=== PATIENT | male | born 1955 ===

== ENCOUNTER 2017-01-08 18:35 | Inpatient (IN) | payer OTHER ==
[2017-01-08 18:39] VITALS: BMI 50.4
[2017-01-08 19:49] LABS: BASO # 0.02 K/mm3 (0.0-2.0); BASO % 0.4 % (0.0-3.0); EOS # 0.1 (0.0-0.7); EOS % 1.8 % (1.5-5.0); GRAN # 2.73 (1.4-6.5); GRAN % 54.2 % (50.0-68.0); HEMATOCRIT 42.9 % (42.0-52.0); LYMPH # 1.8 (1.2-3.4); LYMPH % 36.2 % (22.0-35.0); MEAN CELL VOLUME 89.9 fl (80.0-105.0); MEAN CORPUSCULAR HGB CONC 33.3 g/dl (31.0-37.0); MEAN PLATELET VOLUME 11.5 fl (7.0-11.0); MONO # 0.4 (0.1-0.6); MONO % 7.4 % (1.0-6.0); RED CELL DISTRIBUTION WIDTH 13.1 % (11.5-14.5)
[2017-01-08 19:57] LABS: ALB/GLOB RATIO 1.3 (1.1-1.8); ALKALINE PHOSPHATASE 66 U/L (38-133); ALT/SGPT 35 U/L (7-56); AST/SGOT 30 U/L (15-59); BILIRUBIN,TOTAL 0.5 mg/dL (0.2-1.3); BLOOD UREA NITROGEN 17 mg/dL (7-21); CALCIUM 9.3 mg/dL (8.4-10.5); CARBON DIOXIDE 28 mmol/L (21-33); CHLORIDE 103 mmol/L (95-110); GFR AFRICAN-AMERICAN > 60; GLUCOSE,RANDOM 190 mg/dL (70-110); POTASSIUM 4.3 mmol/L (3.6-5.0); SODIUM 140 mmol/L (132-148); TOTAL PROTEIN 6.8 g/dL (5.8-8.3)
--- NOTE | 2017-01-08 20:27 | ED PDOC ---
Arrival/HPI - General Chief Complaint: Lower Extremity Problem/Injury Time Seen by Provider: 01/08/17 19:09 Historian: Patient - History of Present Illness Narrative History of Present Illness (Text): 01/08/17 20:26 A 61 year old obese male, who has a past medical history of cellulites, DM, HTN , and HLD presents to the emergency department with complains of cellulites on his right calf, which began 1 week ago. The patient reports that he was seen by his primary doctor and was put on antibiotics, but has not seen any improvement , therefore he came to the emergency department. The patient denies any fever, trauma to area, nausea, cough, chest pain, headache, vision changes, hearing changes, back pain, or any other complaints at this time. Time/Duration: 1 week Symptom Course: Unchanged Activities at Onset: Light Context: Home Past Medical History - Provider Review Nursing Documentation Reviewed: Yes - Infectious Disease Hx of Infectious Diseases: None - Cardiac Hx Hypertension: Yes - Endocrine/Metabolic Hx Diabetes Mellitus Type 2: Yes - Hematological/Oncological Hx Blood Transfusions: No Hx Blood Transfusion Reaction: No - Integumentary Hx Psoriasis: Yes - Musculoskeletal/Rheumatological Hx Falls: No - Psychiatric Hx Substance Use: No - Anesthesia Hx Anesthesia Reactions: No Hx Malignant Hyperthermia: No - Suicidal Assessment Feels Threatened In Home Enviroment: No Family/Social History - Physician Review Nursing Documentation Reviewed: Yes Family/Social History: No Known Family HX Smoking Status: Former Smoker Hx Alcohol Use: No Hx Substance Use: No Hx Substance Use Treatment: No Allergies/Home Meds Allergies/Adverse Reactions: Allergies Iodine and Iodide Containing Produc Allergy (Verified 01/10/16 13:02) REDNESS Home Medications: Home Meds Medication Instructions Recorded Confirmed Enalapril Maleate [Vasotec] 20 mg PO DAILY 01/12/16 01/08/17 Metformin HCl [Glucophage] 1,000 mg PO BID 01/12/16 01/08/17 Amoxicillin [Amoxil 500 mg Cap] 500 mg PO BID 01/08/17 01/08/17 Cholecalciferol [Vitamin D 1000 IU] 50,000 units PO QD7 01/08/17 01/08/17 Furosemide [Lasix] 20 mg PO DAILY 01/08/17 01/08/17 Gabapentin [Neurontin] 300 mg PO BID 01/08/17 01/08/17 Amox-Clav 875-125 mg Tablet 500 PO BID 01/09/17 Review of Systems - Physician Review All systems were reviewed & negative as marked: Yes - Review of Systems Constitutional: absent: Fevers Eyes: absent: Vision Changes ENT: absent: Hearing Changes Respiratory: absent: Cough Cardiovascular: absent: Chest Pain Gastrointestinal: absent: Nausea Musculoskeletal: absent: Back Pain Skin: Cellulitis (Right calf) Neurological: absent: Headache Physical Exam Vital Signs Reviewed: Yes Vital Signs Temp Pulse Resp BP Pulse Ox 01/08/17 22:12 82 18 128/72 99 01/08/17 20:36 84 18 132/74 100 01/08/17 18:36 98 F 95 H 18 128/82 97 Temperature: Afebrile Blood Pressure: Normal Pulse: Tachycardic Respiratory Rate: Normal Appearance: Positive for: Well-Appearing, Non-Toxic, Comfortable Pain Distress: None Mental Status: Positive for: Alert and Oriented X 3 - Systems Exam Head: Present: Atraumatic, Normocephalic Pupils: Present: PERRL Conjunctiva: Present: Normal Mouth: Present: Moist Mucous Membranes Neck: Present: Normal Range of Motion Respiratory/Chest: Present: Clear to Auscultation, Good Air Exchange. No: Respiratory Distress, Accessory Muscle Use Cardiovascular: Present: Regular Rate and Rhythm, Normal S1, S2. No: Murmurs Abdomen: Present: Normal Bowel Sounds. No: Tenderness, Distention, Peritoneal Signs Upper Extremity: Present: Normal Inspection. No: Cyanosis, Edema Lower Extremity: Present: Other (Lesion on right calf with erythmea associated with cellulites) Neurological: Present: GCS=15, Speech Normal Skin: Present: Warm, Dry, Normal Color. No: Rashes Psychiatric: Present: Alert, Oriented x 3, Normal Insight, Normal Concentration Medical Decision Making ED Course and Treatment: 01/08/17 20:31 Impression: A 61 year old male with cellulites to the right calf. Differential Diagnosis included but are not limited to: cellulitis Plan: -- Labs -- Reassess and disposition Prior Visits: Notes and results from previous visits were reviewed. The patient was last seen in the emergency department on 01/10/16 for flu-like symptoms. The patient was admitted to the hospital. Progress Notes: 01/08/17 21:[address] Patel, who is aware and agrees with plan. Accepts pt in to her service. Pt will go to Telemetry observation for cellulitis. Pt is no acute distress. Discussed results and hospital observation plan with pt , who is aware and verbalizes understanding. - Lab Interpretations Lab Results: 01/08/17 19:35 01/08/17 19:35 Lab Results 01/08/17 19:35: Sodium 140, Potassium 4.3, Chloride 103, Carbon Dioxide 28, Anion Gap 13, BUN 17, Creatinine 0.9, Est GFR ( Amer) > 60, Est GFR (Non- Af Amer) > 60, Random Glucose 190 H, Calcium 9.3, Total Bilirubin 0.5, AST 30, ALT 35, Alkaline Phosphatase 66, Total Protein 6.8, Albumin 3.8, Globulin 3.0, Albumin/Globulin Ratio 1.3 01/08/17 19:35: WBC 5.0, RBC 4.77, Hgb 14.3, Hct 42.9, MCV 89.9, MCH 30.0, MCHC 33.3, RDW 13.1, Plt Count 162, MPV 11.5 H, Gran % 54.2, Lymph % (Auto) 36.2 H, [place] % (Auto) 7.4 H, Eos % (Auto) 1.8, Baso % (Auto) 0.4, Gran # 2.73, Lymph # 1.8, [place] # 0.4, Eos # 0.1, Baso # 0.02 I have reviewed the lab results: Yes - Medication Orders Current Medication Orders: Acetaminophen (Tylenol 325mg Tab) 650 mg PO Q4H PRN PRN Reason: Pain, Mild (1-3) Last Admin: 01/09/17 01:26 Dose: 650 mg Ergocalciferol (Drisdol 50,000 Intl Units Cap) 1 cap PO Q7D JAG Furosemide (Lasix) 20 mg PO DAILY JAG Gabapentin (Neurontin) 300 mg PO BID JAG PRN Reason: Protocol Ceftaroline Fosamil 600 mg/ (Sodium Chloride) 100 mls @ 100 mls/hr IVPB Q12 JAG PRN Reason: Protocol Stop: 01/18/17 22:01 Last Admin: 01/09/17 21:40 Dose: 100 mls/hr Insulin Human Regular (Humulin R Low) 0 units SC ACHS JAG PRN Reason: Protocol Last Admin: 01/09/17 21:41 Dose: Not Given Non-Admin Reason: Blood Sugar Parameter Lisinopril (Zestril) 20 mg PO DAILY JAG Metformin HCl (Glucophage) 1,000 mg PO BID JAG Discontinued Medications Vancomycin HCl (Vancomycin 1gm) 1 gm in 250 mls @ 167 mls/hr IVPB STAT STA PRN Reason: Protocol Stop: 01/08/17 22:29 Last Admin: 01/08/17 21:55 Dose: 167 mls/hr Piperacillin Sod/Tazobactam Sod (Zosyn 3.375 In Ns 100ml) 100 mls @ 200 mls/hr IVPB STAT STA PRN Reason: Protocol Stop: 01/08/17 21:30 Last Admin: 01/08/17 21:54 Dose: 200 mls/hr Lisinopril (Zestril) 20 mg PO DAILY JAG Pneumococcal Polyvalent Vaccine (Pneumovax 23 Vaccine) 0.5 ml IM .ONCE ONE Stop: 01/09/17 02:03 - Scribe Statement The provider has reviewed the documentation as recorded by the Jf Cardoso Provider Scribe Attestation: All medical record entries made by the Scribherlinda were at my direction and personally dictated by me. I have reviewed the chart and agree that the record accurately reflects my personal performance of the history, physical exam, medical decision making, and the department course for this patient. I have also personally directed, reviewed, and agree with the discharge instructions and disposition. Disposition/Present on Arrival - Present on Arrival Any Indicators Present on Arrival: No History of DVT/PE: No History of Uncontrolled Diabetes: Yes Urinary Catheter: No History of Decub. Ulcer: No History Surgical Site Infection Following: None - Disposition Have Diagnosis and Disposition been Completed?: Yes Diagnosis: Cellulitis of right leg Disposition: HOSPITALIZED Disposition Time: 21:30 Condition: GOOD
[2017-01-08] MEDS ORDERED: Vancomycin 1gm in NS 250ml 1 GM/250 ML BAG IVPB STA (21:00)
[2017-01-08] MEDS ORDERED: Piperacillin/Tazobact 3.375 gm 100 ML IVPB STA (21:01)
[2017-01-09] MEDS ORDERED: Pneumococcal 23-Valent Vaccine IM ONE (02:02)
[2017-01-09] MEDS: Insulin Reg-LOW-Coverage SC SCH ×4 (07:50→21:41)
--- NOTE | 2017-01-09 15:33 | US ---
HISTORY: Leg pain and swelling. Evaluate for DVT PHYSICIAN(S): Aram Garcia MD. TECHNIQUE: Duplex sonography and color-flow Doppler with graded compression were used to evaluate the deep venous systems of both lower extremities. The exam is limited by body habitus and edema FINDINGS: The visualized deep venous systems of both lower extremities are sonographically normal and compressible. Normal wave forms and augmentation are seen. There is no sonographic evidence for deep venous thrombosis in the visualized segments of both lower extremities. IMPRESSION: No sonographic evidence for deep venous thrombosis in the visualized segments of both lower extremities. Limited study
[2017-01-09] MEDS: Ceftaroline 600 MG in Sodium Chloride 0.9% 100 ML IVPB SCH (21:40)
--- NOTE | 2017-01-10 01:04 | CON ---
DATE: 01/09/2017 The patient is in 569, bed 2. The patient is seen earlier today. CHIEF COMPLAINT: Right leg infection x several days. HISTORY OF PRESENT ILLNESS: This is a 61-year-old male with morbid obesity, known to me previous admission last year with patient with a BMI of 49. Patient also has diabetes mellitus, hypertension, and hyperlipidemia, who states that he has had the right leg infection times several days. He denied any fevers or any chills and he had also history of ESBL E. coli prostatitis with an elevated PSA and last year was treated with extended period for prostatitis. Now, the patient is admitted with right leg infection. REVIEW OF SYSTEMS: Reveals the patient has low-grade fevers and no chills, no nausea and *------* a week ago. He denies any cough, shortness of breath or chest pain. No abdominal pain, diarrhea, or constipation. No bright red blood per rectum. No melena. PAST MEDICAL HISTORY: Significant for morbid obesity with BMI of 49, diabetes mellitus, hypertension, hyperlipidemia, and ESBL E. coli prostatitis. PAST SURGICAL HISTORY: Significant for patient did have a colonoscopy. ALLERGIES: THE PATIENT IS ALLERGIC TO IODINE AND IODINE CONTAINING PRODUCTS. MEDICATIONS AT HOME: Include the patient to be on metformin, vitamins, Lasix, enalapril, and Neurontin. PHYSICAL EXAMINATION: VITAL SIGNS: The patient has a temperature of 98; heart rate of 64, it was up to 95 in the emergency room yesterday, blood pressure was 101/40 and respiratory rate of 20. HEENT: Unremarkable. NECK: Supple. LUNGS: Decreased breath sounds. HEART: Normal S1 and S2. ABDOMEN: Soft and nontender. No rebound and no guarding. No masses. EXTREMITIES: Examination of the leg reveals the right calf has erythema, essential necrotic area erythema around it. No purulent discharge. LABORATORY DATA: Reveals white count of 5, hemoglobin of 14, platelets of 162. Chemistry reveals a BUN of 17, creatinine of 0.9, glucose is 174. The patient had an HIV test negative. Hepatitis profile was negative in the past. ASSESSMENT AND PLAN: A 61-year-old male with morbid obesity, body mass index of 49 with diabetes mellitus, hypertension, hyperlipidemia, history of extended-spectrum beta lactamase Escherichia coli prostatitis, presenting now with a right leg cellulitis and concerned about methicillin-resistant Staphylococcus aureus. The patient did have some renal insufficiency in the past. We will treat the patient with Teflaro. Concerned about Doppler. We will order venous Doppler and arterial Doppler regarding his blood supply, although the pulses are intact and we will make further recommendations. Jani Magana MD cc:
[2017-01-10] MEDS: Insulin Reg-LOW-Coverage SC SCH ×4 (08:00→22:31)
[2017-01-10] MEDS: Ergocalciferol 50,000 Intl Units Cap PO SCH (10:34)
[2017-01-10] MEDS: Ceftaroline 600 MG in Sodium Chloride 0.9% 100 ML IVPB SCH ×2 (10:35→22:31)
--- NOTE | 2017-01-10 14:21 | US ---
PROCEDURE: Lower extremity GEETA exam HISTORY: Peripheral vascular disease with pain and ulceration. Previous smoker. Diabetes. PHYSICIAN(S): Aram Garcia MD. FINDINGS: The resting GEETA's are abnormally elevated: Right, 1.35 and left, 1.37 The brachial systolic pressures are symmetric. The low thigh pressures are noncompressible. The low thigh PVR waveforms are normal and symmetric. The calf PVR waveforms augment normally. No significant gradients are noted across the thighs. The ankle and metatarsal waveforms are relatively normal and symmetric. No significant pressure gradients are noted across the lower legs. IMPRESSION: 1. Relatively normal GEETA and PVR examination at rest.
--- NOTE | 2017-01-11 01:20 | HP ---
The patient was seen and examined at the bedside on 01/09/2017. CHIEF COMPLAINT: Pain, swelling, redness of the leg. HISTORY OF PRESENT ILLNESS: Mr. Josemanuel Wei is 61-year-old, my private patient, with past medical history of cellulitis of the legs, malignant hypertension, hypercholesterolemia, came to my office with the swelling of the right calf. Actually, there was a black lesion surrounded by a red lesion and the patient has history of severe peripheral vascular disease. For his grandmother, we had to do amputation of the foot and for mother we had to do bypass due to severe peripheral vascular disease. I thank the patient to be in our hospital. He is admitted for IV antibiotics. ID consult called with Dr. Magana, a length of time discussion done with Dr. Magana. Otherwise, no fever, no chills. No nausea, vomiting or diarrhea. No headache or dizziness. PAST MEDICAL HISTORY: Hypertension, diabetes mellitus type 2; non-insulin requiring, not controlled, obesity, and psoriasis. FAMILY HISTORY: Severe peripheral vascular disease and diabetes mellitus from mother side. HABITS: Former smoker, now quit. No alcohol. No drugs. ALLERGIES: THE PATIENT IS ALLERGIC WITH IODINE. HOME MEDICATIONS: Vasotec, Glucophage, did a course of Augmentin as outpatient, but failed, vitamin D, Lasix, and Neurontin. REVIEW OF SYSTEMS: The patient seen and examined on the bedside on 01/09/2017. His was sitting on the bedside also. Still having redness and warmth on the right calf, but no fever. No chills. No nausea, vomiting or diarrhea. No hematuria or hematochezia. No shortness of breath. No headache. No dizziness. PHYSICAL EXAMINATION VITAL SIGNS: Temperature 98.4, pulse 57, blood pressure 103/59, respiratory rate 20. HEENT: Head is normocephalic and atraumatic. Eyes, PERRLA. Extraocular muscles intact. Conjunctiva clear. Nose patent. Mucous membrane moist. NECK: Supple. No carotid bruit or thyromegaly. CHEST: Bilaterally symmetrical. HEART: S1 and S2 positive. LUNG: Clear to auscultation. ABDOMEN: Soft. Bowel sounds positive. No organomegaly. EXTREMITIES: Upper extremity: No edema. No cyanosis. Lower extremity: Right leg back of the calf is red and black, warm, and tender. NEUROLOGIC: The patient is awake and alert. Moving all 4 extremities. No focal deficit. LABORATORY DATA: White blood cells 5.0, hemoglobin 14.3, hematocrit 42.9, platelets 152. Glucose 158, 215, 242, 131, 174. Sodium 140, potassium 4.3, BUN 17, creatinine 0.9, glucose 174. AST 30 and ALT 35. ASSESSMENT AND PLAN: Mr. Josemanuel Wei a 61-year-old male with history of significant morbid obesity, body mass index of 49, uncontrolled diabetes mellitus type 2; non-insulin requiring, hypertension, hypercholesterolemia, extended spectrum beta lactamase Escherichia coli prostatitis last admission, now came with the right leg cellulitis, concerned about methicillin-resistant Staphylococcus aureus, history of renal insufficiency in the past, now ordered Teflaro. Doppler of the leg ordered. Gastrointestinal and deep venous thrombosis prophylaxis. Blood glucose is not appreciated. We will follow up. Ivonne Patel MD
--- NOTE | 2017-01-11 06:26 | PN ---
DATE: 01/10/2017 SUBJECTIVE: This is a 61-year-old male seen by me on 01/10/2017. No nausea, vomiting or diarrhea. No hematuria or hematochezia. No headache. No dizziness. No chest pain. No palpitation. Still having pain in the calf of the leg, is warm, black and red area. PHYSICAL EXAMINATION: VITAL SIGNS: Temperature 98.3, pulse 85, blood pressure 134/70 and respiratory rate 20. HEENT: Head is normocephalic and atraumatic. Eyes: PERRLA. Extraocular muscles are intact. Conjunctivae clear. Nose is patent. Mucous membrane moist. NECK: Supple. No carotid bruits. No JVD or thyromegaly. CHEST: Bilaterally symmetrical. HEART: S1 and S2 positive. LUNGS: Clear to auscultation. ABDOMEN: Soft. Bowel sounds positive. No organomegaly. EXTREMITIES: No edema. No cyanosis. NEUROLOGICAL: The patient is awake and alert. Moving all four extremities. No focal deficit. MEDICATIONS: Carafate, Vitamin D, Glucophage, insulin, Lasix, Neurontin, Tylenol and lisinopril. LABORATORY DATA: White blood cell is 5.0, hemoglobin 14.3, hematocrit 42.9 and platelets 152. Glucose 118, 146 and 198. ASSESSMENT AND PLAN: Mr. Eriberto Abernathy is 61 years old male with history of diabetes mellitus, not controlled; hypertension; hypercholesterolemia, history of cellulitis of the leg in the past, now came with cellulitis of the leg again. Area is black and red . I would feel outpatient treatment with amoxicillin. History of hypertension. ID consult by Dr. Magana to see that patient started on antibiotics. Gastrointestinal and deep venous thrombosis prophylaxis. Repeat labs. We will follow you. Ivonne Patel MD MTDD
[2017-01-11] MEDS: Insulin Reg-LOW-Coverage SC SCH ×4 (08:30→22:00)
[2017-01-11] MEDS: Ceftaroline 600 MG in Sodium Chloride 0.9% 100 ML IVPB SCH ×2 (10:01→22:40)
--- NOTE | 2017-01-11 14:01 | CP.PCM.PN ---
Subjective - Date & Time of Evaluation Date of Evaluation: 01/11/17 Time of Evaluation: 11:05 - Subjective Subjective: Still with pain at the back of the right leg, no fevers overnight. Objective - Vital Signs/Intake and Output Vital Signs (last 24 hours): Temp Pulse Resp BP Pulse Ox 98 F 67 22 127/71 98 01/11/17 07:53 01/11/17 07:53 01/11/17 07:53 01/11/17 07:53 01/11/17 07:53 Intake and Output: 01/11/17 01/11/17 06:59 18:59 Intake Total 720 Balance 720 - Medications Medications: Current Medications Acetaminophen (Tylenol 325mg Tab) 650 mg PO Q4H PRN PRN Reason: Pain, Mild (1-3) Last Admin: 01/09/17 01:26 Dose: 650 mg Ergocalciferol (Drisdol 50,000 Intl Units Cap) 1 cap PO Q7D [facility] Last Admin: 01/10/17 10:34 Dose: 1 cap Furosemide (Lasix) 20 mg PO DAILY [facility] Last Admin: 01/10/17 10:34 Dose: 20 mg Gabapentin (Neurontin) 300 mg PO BID JAG PRN Reason: Protocol Last Admin: 01/10/17 17:26 Dose: 300 mg Ceftaroline Fosamil 600 mg/ (Sodium Chloride) 100 mls @ 100 mls/hr IVPB Q12 JAG PRN Reason: Protocol Stop: 01/18/17 22:01 Last Admin: 01/10/17 22:31 Dose: 100 mls/hr Insulin Human Regular (Humulin R Low) 0 units SC ACHS JAG PRN Reason: Protocol Last Admin: 01/10/17 22:31 Dose: Not Given Lisinopril (Zestril) 20 mg PO DAILY [facility] Last Admin: 01/10/17 10:36 Dose: 20 mg Metformin HCl (Glucophage) 1,000 mg PO BID [facility] Last Admin: 01/10/17 17:26 Dose: 1,000 mg - Constitutional Appears: Non-toxic, No Acute Distress - Head Exam Head Exam: NORMAL INSPECTION - ENT Exam ENT Exam: Mucous Membranes Moist - Neck Exam Neck Exam: absent: Meningismus - Respiratory Exam Respiratory Exam: Decreased Breath Sounds - Cardiovascular Exam Cardiovascular Exam: +S1, +S2 - GI/Abdominal Exam GI & Abdominal Exam: Soft. absent: Tenderness - Extremities Exam Additional comments: posterior right leg with dry area on the back with necrotic center Assessment and Plan - Assessment and Plan (Free Text) Plan: Assessment right leg skin and skin structure infection, need to rule out deeper infection history of extended-spectrum beta-lactamase Escherichia coli sepsis with prostatitis morbid obesity with BMI of 50 diabetes mellitus hypertension dyslipidemia Plan continue Teflaro (day 3); will order MRI of the right leg to see if the infection is deeper or if there is any collection would suggest podiatry evaluation will monitor clinically
[2017-01-12] MEDS: Insulin Reg-LOW-Coverage SC SCH ×4 (05:15→22:35)
--- NOTE | 2017-01-12 10:29 | MRI ---
PROCEDURE: MRI of the right lower extremity without contrast HISTORY: r/o abscess COMPARISON: TECHNIQUE: MRI of the right lower extremity was performed from the proximal to distal tibia. The patient refused contrast administration. . FINDINGS: There is no evidence of abscess. There is minimal subcutaneous edema. There is no significant muscular edema. There is no bone marrow edema to suggest osteomyelitis. IMPRESSION: Negative study
--- NOTE | 2017-01-12 10:31 | PN ---
DATE: 01/11/2017 SUBJECTIVE: The patient was seen and examined. He is looking comfortable. He is still having pain in the right leg especially on the backside, it is a red and black area tender. No nausea, vomiting, or diarrhea. No hematuria or hematochezia. No headache or dizziness. PHYSICAL EXAMINATION: VITAL SIGNS: Temperature of 98, pulse of 67, respiratory rate of 22, blood pressure of 127/71 and pulse oxymetry 98%. HEENT: Head is normocephalic and atraumatic. Eyes; PERRLA. Extraocular muscles are intact. Conjunctivae are clear. Nose is patent. Mucous membrane moist. NECK: Supple. No carotid bruits. No JVD or thyromegaly. CHEST: Bilaterally symmetrical. HEART: S1 and S2 positive. LUNGS: Clear to auscultation. ABDOMEN: Soft. Bowel sounds positive. No organomegaly. EXTREMITIES: Right leg back of the calf, red and black tender. NEUROLOGIC: The patient is awake and alert. Follow simple commands. Moving all four extremities. MEDICATIONS: Vitamin D, Lasix, Neurontin,ceftaroline, insulin, Zestril, and Glucophage. LABORATORY DATA: Reviewed by me. ASSESSMENT AND PLAN: Mr. Josemanuel Wei is a 61 years old my private patient with history of hypertension, diabetes mellitus, hypercholesterolemia, obesity, obstructive sleep apnea syndrome, noncompliant, came with right leg skin structures infection. According to Infectious Diseases need to rule out deep infection history of extended spectrum beta lactamase Escherichia coli, sepsis with prostatitis, morbid obesity with body mass index of 50. We will continue Teflaro day number 3. We will order MRI of the right leg to see if the infection is deep, also there is any collection. ID on that case appreciated, cardiology and podiatry consult. We will follow up. Ivonne Patel MD
[2017-01-12] MEDS: Ceftaroline 600 MG in Sodium Chloride 0.9% 100 ML IVPB SCH ×2 (11:36→22:31)
--- NOTE | 2017-01-12 14:15 | CP.PCM.CON ---
<Christopher Sanchez - Last Filed: 01/12/17 14:11> History of Present Illness - History of Present Illness History of Present Illness: A 61 year old obese male patient with PMHx of cellulites, DM, HTN, and HLD was seen at bedside this afternoon with attending Dr. Chávez concerning an open lesion to right calf. Patient states that he first noticed the wound 1 week ago , but does not remember any trauma to the area. Patient states that he tried antibiotic medications from the primary doctor but did not see any improvements. He denies of any trauma, bugbite or recent travel. Patient complains of pain on palpation to the area of open wound. Patient denies of any N/V/F/C or SOB today Past Patient History - Infectious Disease Hx of Infectious Diseases: None - Past Social History Smoking Status: Former Smoker - CARDIAC Hx Hypertension: Yes - PULMONARY Hx Pneumonia: Yes - ENDOCRINE/METABOLIC Hx Diabetes Mellitus Type 2: Yes - HEMATOLOGICAL/ONCOLOGICAL Hx Blood Transfusions: No Hx Blood Transfusion Reaction: No - INTEGUMENTARY Hx Psoriasis: Yes - MUSCULOSKELETAL/RHEUMATOLOGICAL Hx Falls: No - PSYCHIATRIC Hx Substance Use: No - SURGICAL HISTORY Hx Surgeries: No - ANESTHESIA Hx Anesthesia Reactions: No Hx Malignant Hyperthermia: No Meds Allergies/Adverse Reactions: Allergies Allergy/AdvReac Type Severity Reaction Status Date / Time Iodine and Iodide Containing Allergy REDNESS Verified 01/10/16 13:02 Produc - Medications Medications: Current Medications Acetaminophen (Tylenol 325mg Tab) 650 mg PO Q4H PRN PRN Reason: Pain, Mild (1-3) Last Admin: 01/09/17 01:26 Dose: 650 mg Ergocalciferol (Drisdol 50,000 Intl Units Cap) 1 cap PO Q7D [facility] Last Admin: 01/10/17 10:34 Dose: 1 cap Furosemide (Lasix) 20 mg PO DAILY [facility] Last Admin: 01/12/17 11:35 Dose: 20 mg Gabapentin (Neurontin) 300 mg PO BID [facility] PRN Reason: Protocol Last Admin: 01/12/17 11:33 Dose: 300 mg Ceftaroline Fosamil 600 mg/ (Sodium Chloride) 100 mls @ 100 mls/hr IVPB Q12 [facility] PRN Reason: Protocol Stop: 01/18/17 22:01 Last Admin: 01/12/17 11:36 Dose: 100 mls/hr Insulin Human Regular (Humulin R Low) 0 units SC ACHS [facility] PRN Reason: Protocol Last Admin: 01/12/17 12:14 Dose: 3 units Lisinopril (Zestril) 20 mg PO DAILY [facility] Last Admin: 01/12/17 11:35 Dose: 20 mg Metformin HCl (Glucophage) 1,000 mg PO BID [facility] Last Admin: 01/12/17 11:35 Dose: 1,000 mg Physical Exam - Constitutional Appears: Well, Non-toxic, No Acute Distress - Head Exam Head Exam: ATRAUMATIC - Extremities Exam Additional comments: Right lower extremity exam DERM: Open wound noted to posterior aspect of Right calf measuring 1cm x 1cm x 0.1cm with scab over the ulceration. No drainage is noted, No purulent discharge noted. No probe to bone, no tracking is noted, No mal-odor noted. Erythema is noted around the wound with >2cm margins VASC: Palpable DP and PT noted bilaterally 1/4, WELT DRAWER less than 3 seconds to all digits noted ORTHO: Pain on palpation to the area of ulceration. Decreased ROM to joints distal to right knee secondary to guarding NEURO: Gross sensation intact - Neurological Exam Neurological exam: Alert, Oriented x3 - Psychiatric Exam Psychiatric exam: Normal Affect, Normal Mood - Skin Skin Exam: Normal Color, Warm Results - Vital Signs Recent Vital Signs: Last Vital Signs Temp 98.3 F 01/12/17 08:00 Pulse 90 01/12/17 11:35 Resp 20 01/12/17 08:00 BP 120/79 01/12/17 11:35 Pulse Ox 95 01/12/17 08:00 - Labs Result Diagrams: 01/08/17 19:35 01/08/17 19:35 Labs: Laboratory Results - last 24 hr 01/11/17 01/11/17 01/12/17 16:08 22:31 06:59 POC Glucose (mg/dL) 139 H 123 H 140 H 01/12/17 12:08 POC Glucose (mg/dL) 277 H Assessment & Plan - Assessment and Plan (Free Text) Assessment: 61 yo male patient with venous stasis ulceration to posterior aspect of right leg Plan: Patient was seen, evaluated and treated with all questions and concerns addressed labs and vitals reviewed Rounded with attending Dr. Chávez Applied Hydrocolloid padding; plans for wound culture tomorrow Continue with IV abx as per ID Podiatry will continue to follow in-house <Ida Chávez - Last Filed: 01/23/17 19:32> Results - Vital Signs Recent Vital Signs: Last Vital Signs Temp 98 F 01/17/17 08:50 Pulse 59 L 01/17/17 08:50 Resp 20 01/17/17 08:50 BP 118/73 01/17/17 09:33 Pulse Ox 94 L 01/17/17 08:50 - Labs Result Diagrams: 01/15/17 06:40 01/15/17 06:40 Attending/Attestation - Attestation I have personally seen and examined this patient.: Yes I have fully participated in the care of the patient.: Yes I have reviewed all pertinent clinical information: Yes
--- NOTE | 2017-01-13 01:29 | PN ---
DATE: SUBJECTIVE: The patient is a 61 years old male. The patient was seen and examined on the bedside , looking comfortable. No nausea, vomiting, diarrhea. No hematuria or hematochezia. No headache. No dizziness. No chest pain. No palpitations. The patient has open wound in the leg. PHYSICAL EXAMINATION VITAL SIGNS: Temperature 98.6, pulse 80, blood pressure 140/80, respiratory rate 18. HEENT: Head normocephalic and atraumatic. Eyes PERRLA. Extraocular muscles intact. Conjunctivae clear. Nose patent. Mucous membranes moist. NECK: Supple. No carotid bruits. No JVD or thyromegaly. CHEST: Bilaterally symmetrical. HEART: S1 and S2 positive. LUNGS: Clear to auscultation. ABDOMEN: Soft. Bowel sounds positive. No organomegaly. EXTREMITIES: No edema, no cyanosis. NEUROLOGICAL: The patient is awake and alert. Moving all 4 extremities. No focal deficit. MEDICATIONS: Tylenol, vitamin D, Lasix, Neurontin, sertraline, insulin, Zestril, and Glucophage, LABORATORY DATA: We do not have recent labs today, but I reviewed old labs. ASSESSMENT AND PLAN: Mr. Eriberto Abernathy is a 61-year-old male with uncontrolled diabetes mellitus, had venous stasis ulceration on the posterior aspect of the right leg, nonhealing wound, hypercholesterolemia, hypertension, and obesity. The patient was seen and examined by the Podiatry Dr. Chávez, applied hydrocolloid padding. Plans for wound consult tomorrow. Continue IV antibiotics as per infectious disease. The patient went for MRI of the lower extremity which is negative for subcutaneous edema. No evidence of abscess. We will make discharge planning. Gastrointestinal and deep venous thrombosis prophylaxis. Repeat labs. We will follow. Ivonne Patel MD
[2017-01-13] MEDS: Insulin Reg-LOW-Coverage SC SCH ×4 (08:26→22:11)
[2017-01-13] MEDS ORDERED: Unna Boot TOP ONE (10:06)
--- NOTE | 2017-01-13 10:06 | CP.PCM.PN ---
<Christopher Sanchez - Last Filed: 01/13/17 10:02> Subjective - Date & Time of Evaluation Date of Evaluation: 01/13/17 Time of Evaluation: 10:02 - Subjective Subjective: A 61 year old obese male patient was seen at bedside this afternoon with attending Dr. Chávez concerning an open lesion to right calf. Dressing to right lower extremity appears cdi. Patient resting comfortably and denies of acute distress. Patient denies of any N/V/F/C or SOB today Objective - Vital Signs/Intake and Output Vital Signs (last 24 hours): Temp Pulse Resp BP Pulse Ox 97.9 F 51 L 20 92/51 L 93 L 01/13/17 07:00 01/13/17 07:00 01/13/17 07:00 01/13/17 07:00 01/13/17 07:00 Intake and Output: 01/13/17 01/13/17 06:59 18:59 Intake Total 1020 Balance 1020 - Medications Medications: Current Medications Acetaminophen (Tylenol 325mg Tab) 650 mg PO Q4H PRN PRN Reason: Pain, Mild (1-3) Last Admin: 01/09/17 01:26 Dose: 650 mg Ergocalciferol (Drisdol 50,000 Intl Units Cap) 1 cap PO Q7D [facility] Last Admin: 01/10/17 10:34 Dose: 1 cap Furosemide (Lasix) 20 mg PO DAILY [facility] Last Admin: 01/12/17 11:35 Dose: 20 mg Gabapentin (Neurontin) 300 mg PO BID [facility] PRN Reason: Protocol Last Admin: 01/12/17 19:10 Dose: 300 mg Ceftaroline Fosamil 600 mg/ (Sodium Chloride) 100 mls @ 100 mls/hr IVPB Q12 [facility] PRN Reason: Protocol Stop: 01/18/17 22:01 Last Admin: 01/12/17 22:31 Dose: 100 mls/hr Insulin Human Regular (Humulin R Low) 0 units SC ACHS [facility] PRN Reason: Protocol Last Admin: 01/13/17 08:26 Dose: Not Given Lisinopril (Zestril) 20 mg PO DAILY [facility] Last Admin: 01/12/17 11:35 Dose: 20 mg Metformin HCl (Glucophage) 1,000 mg PO BID [facility] Last Admin: 01/12/17 19:10 Dose: 1,000 mg - Constitutional Appears: Well, Non-toxic, No Acute Distress - Extremities Exam Additional comments: Right lower extremity exam DERM: Open wound noted to posterior aspect of Right calf measuring 1cm x 1cm x 0.1cm with scab over the ulceration. Mild drainage is noted, No purulent discharge noted. No probe to bone, no tracking is noted, No mal-odor noted. Erythema is noted around the wound with <2cm margins VASC: Palpable DP and PT noted bilaterally 1/4, TOLL TEST DESK WORKER less than 3 seconds to all digits noted ORTHO: Pain on palpation to the area of ulceration. Decreased ROM to joints distal to right knee secondary to guarding NEURO: Gross sensation intact - Neurological Exam Neurological Exam: Alert, Awake, Oriented x3 - Psychiatric Exam Psychiatric exam: Normal Affect, Normal Mood - Skin Skin Exam: Normal Color, Warm Assessment and Plan - Assessment and Plan (Free Text) Assessment: 61 yo male patient with venous stasis ulceration to posterior aspect of right leg Plan: Patient was seen, evaluated and treated with all questions and concerns addressed labs and vitals reviewed Rounded with attending Dr. Chávez Wound culture was taken from the ulcer to right calf Applied Hydrocolloid padding; plans to debride ulcer tomorrow. Unna boot ordered to be applied upon patient discharge. Apply Santyl as long as patient remains in-house Continue with IV abx as per ID Podiatry will continue to follow in-house <Ida Chávez - Last Filed: 01/23/17 19:35> Objective - Vital Signs/Intake and Output Vital Signs (last 24 hours): Temp Pulse Resp BP Pulse Ox 98 F 59 L 20 118/73 94 L 01/17/17 08:50 01/17/17 08:50 01/17/17 08:50 01/17/17 09:33 01/17/17 08:50 - Labs Labs: 01/15/17 06:40 01/15/17 06:40 Attending/Attestation - Attestation I have personally seen and examined this patient.: Yes I have fully participated in the care of the patient.: Yes I have reviewed all pertinent clinical information, including history, physical exam and plan: Yes
[2017-01-13] MEDS: Collagenase 250 Units/gm Ointment(30 gm) TOP SCH (11:25)
[2017-01-13] MEDS: Ceftaroline 600 MG in Sodium Chloride 0.9% 100 ML IVPB SCH ×2 (11:25→22:12)
--- NOTE | 2017-01-13 11:42 | CP.PCM.PN ---
Subjective - Date & Time of Evaluation Date of Evaluation: 01/13/17 Time of Evaluation: 11:05 - Subjective Subjective: Patient is feeling better, less pain in the right leg, no fevers. Objective - Vital Signs/Intake and Output Vital Signs (last 24 hours): Temp Pulse Resp BP Pulse Ox 98 F 76 20 132/87 98 01/12/17 23:00 01/12/17 23:00 01/12/17 23:00 01/12/17 23:00 01/12/17 23:00 Intake and Output: 01/12/17 01/13/17 18:59 06:59 Intake Total 600 1020 Balance 600 1020 - Medications Medications: Current Medications Acetaminophen (Tylenol 325mg Tab) 650 mg PO Q4H PRN PRN Reason: Pain, Mild (1-3) Last Admin: 01/09/17 01:26 Dose: 650 mg Ergocalciferol (Drisdol 50,000 Intl Units Cap) 1 cap PO Q7D [facility] Last Admin: 01/10/17 10:34 Dose: 1 cap Furosemide (Lasix) 20 mg PO DAILY [facility] Last Admin: 01/12/17 11:35 Dose: 20 mg Gabapentin (Neurontin) 300 mg PO BID [facility] PRN Reason: Protocol Last Admin: 01/12/17 19:10 Dose: 300 mg Ceftaroline Fosamil 600 mg/ (Sodium Chloride) 100 mls @ 100 mls/hr IVPB Q12 [facility] PRN Reason: Protocol Stop: 01/18/17 22:01 Last Admin: 01/12/17 22:31 Dose: 100 mls/hr Insulin Human Regular (Humulin R Low) 0 units SC ACHS [facility] PRN Reason: Protocol Last Admin: 01/12/17 22:35 Dose: Not Given Lisinopril (Zestril) 20 mg PO DAILY [facility] Last Admin: 01/12/17 11:35 Dose: 20 mg Metformin HCl (Glucophage) 1,000 mg PO BID [facility] Last Admin: 01/12/17 19:10 Dose: 1,000 mg - Constitutional Appears: Non-toxic, No Acute Distress - Head Exam Head Exam: NORMAL INSPECTION - ENT Exam ENT Exam: Mucous Membranes Moist - Neck Exam Neck Exam: absent: Meningismus - Respiratory Exam Respiratory Exam: Decreased Breath Sounds - Cardiovascular Exam Cardiovascular Exam: +S1, +S2 - GI/Abdominal Exam GI & Abdominal Exam: Soft. absent: Tenderness - Extremities Exam Additional comments: posterior right leg with dressing in place Assessment and Plan - Assessment and Plan (Free Text) Plan: Assessment right leg skin and skin structure infection, with infected ulcer on the posterior portion history of extended-spectrum beta-lactamase Escherichia coli sepsis with prostatitis morbid obesity with BMI of 50 diabetes mellitus hypertension dyslipidemia Plan continue Teflaro (day 4); MRI of the right leg is negative for any collection or osteomyelitis - for debridement of ulcer tomorrow by Podiatry follow up wound cx will continue to monitor clinically
[2017-01-14] MEDS: Insulin Reg-LOW-Coverage SC SCH ×4 (08:00→21:37)
[2017-01-14] MEDS: Collagenase 250 Units/gm Ointment(30 gm) TOP SCH (10:00)
[2017-01-14] MEDS: Ceftaroline 600 MG in Sodium Chloride 0.9% 100 ML IVPB SCH ×2 (10:19→21:32)
--- NOTE | 2017-01-14 12:24 | PN ---
DATE: 01/13/2017 SUBJECTIVE: The patient was seen and examined at the bedside on 01/13/2017, looking comfortable, still having pain in the right leg, has dressing on the lesion. No fever. No chills. No nausea, vomiting, or diarrhea. No hematuria or hematochezia. No headache. No dizziness. PHYSICAL EXAMINATION VITAL SIGNS: Temperature 98, pulse 76, respiratory rate 20, blood pressure 113/80, pulse oximetry 98%. HEENT: Head normocephalic, atraumatic. Eyes PERRLA. Extraocular muscles intact. Conjunctiva clear. Nose patent. Mucous membranes moist. NECK: Supple. No carotid bruits. No JVD or thyromegaly. CHEST: Bilaterally symmetrical. HEART: S1 and S2 positive. LUNGS: Clear to auscultation. ABDOMEN: Soft. Bowel sounds positive. No organomegaly. EXTREMITIES: No edema, no cyanosis except right leg calf area was warm, red area covered with the dressing by podiatry. NEUROLOGICAL: The patient is awake and alert, moving all 4 extremities. No focal deficit. Cranial nerves II through XII were intact. MEDICATIONS: Tylenol, vitamin D, Lasix, Neurontin, Teflaro, insulin, Zestril, and metformin. LABORATORY DATA: We do not have recent labs today. ASSESSMENT AND PLAN: Mr. Josemanuel Wei is a 61-year-old male with multiple medical problems, obesity, comorbid, BMI 50, diabetes mellitus uncontrolled, hypertension, dyslipidemia, history of hypercholesterolemia, history of extended-spectrum beta-lactamase Escherichia coli, sepsis with prostatitis, now came with right leg skin and soft-tissue infection with infected ulcers on the posterior portion of the right leg, getting antibiotics Teflaro from infectious disease on day 4. MRI of the right leg is done, shows no osteomyelitis. The patient is going for debridement on 01/14/2017 by podiatry, wound care by podiatry. Gastrointestinal and deep venous thrombosis prophylaxis. Repeat labs. We will follow. Ivonne Patel MD
--- NOTE | 2017-01-14 13:06 | CP.PCM.PN ---
<Christopher Sanchez - Last Filed: 01/14/17 13:04> Subjective - Date & Time of Evaluation Date of Evaluation: 01/14/17 Time of Evaluation: 09:04 - Subjective Subjective: A 61 year old obese male patient was seen at bedside this AM. concerning an open lesion to right leg posteior. Dressing to right lower extremity appears cdi. Patient resting comfortably and denies of acute distress. Patient denies of any N/V/F/C or SOB today Objective - Vital Signs/Intake and Output Vital Signs (last 24 hours): Temp Pulse Resp BP Pulse Ox 98 F 72 20 115/67 99 01/14/17 08:26 01/14/17 08:26 01/14/17 08:26 01/14/17 10:18 01/14/17 08:26 Intake and Output: 01/14/17 01/14/17 06:59 18:59 Intake Total 1080 Balance 1080 - Medications Medications: Current Medications Acetaminophen (Tylenol 325mg Tab) 650 mg PO Q4H PRN PRN Reason: Pain, Mild (1-3) Last Admin: 01/13/17 11:27 Dose: 650 mg Collagenase (Santyl) 0 gm TOP DAILY [facility] Last Admin: 01/13/17 11:25 Dose: 1 applic Ergocalciferol (Drisdol 50,000 Intl Units Cap) 1 cap PO Q7D [facility] Last Admin: 01/10/17 10:34 Dose: 1 cap Furosemide (Lasix) 20 mg PO DAILY [facility] Last Admin: 01/14/17 10:18 Dose: 20 mg Gabapentin (Neurontin) 300 mg PO BID [facility] PRN Reason: Protocol Last Admin: 01/14/17 10:18 Dose: 300 mg Ceftaroline Fosamil 600 mg/ (Sodium Chloride) 100 mls @ 100 mls/hr IVPB Q12 [facility] PRN Reason: Protocol Stop: 01/18/17 22:01 Last Admin: 01/14/17 10:19 Dose: 100 mls/hr Insulin Human Regular (Humulin R Low) 0 units SC ACHS [facility] PRN Reason: Protocol Last Admin: 01/13/17 22:11 Dose: Not Given Lisinopril (Zestril) 20 mg PO DAILY [facility] Last Admin: 01/14/17 10:18 Dose: 20 mg Metformin HCl (Glucophage) 1,000 mg PO BID [facility] Last Admin: 01/14/17 10:18 Dose: 1,000 mg - Constitutional Appears: Well, Non-toxic, No Acute Distress - Extremities Exam Additional comments: Right lower extremity exam DERM: Open wound noted to posterior aspect of Right posteior leg measuring 1cm x 1cm x 0.1cm with scab over the ulceration. Mild drainage is noted, No purulent discharge noted. No probe to bone, no tracking is noted, No mal-odor noted. Erythema is noted around the wound with <2cm margins VASC: Palpable DP and PT noted bilaterally 1/4, ENVIRONMENTAL AID less than 3 seconds to all digits noted ORTHO: Pain on palpation to the area of ulceration. Decreased ROM to joints distal to right knee secondary to guarding NEURO: Gross sensation intact - Neurological Exam Neurological Exam: Alert, Awake, Oriented x3 - Psychiatric Exam Psychiatric exam: Normal Affect, Normal Mood - Skin Skin Exam: Normal Color, Warm Assessment and Plan - Assessment and Plan (Free Text) Assessment: 61 yo male patient with venous stasis ulceration to posterior aspect of right leg Plan: Patient was seen, evaluated and treated with all questions and concerns addressed labs and vitals reviewed discussed with attendig Dr. Trevizo Performed bedside Wound debridement of bacterial bioflim with sterile equipments ; patient tolerated the procedure well Wound culture pending Apply Santyl as long as patient remains in-house Continue with IV abx as per ID Podiatry will continue to follow in-house <Mayank Trevizo - Last Filed: 01/14/17 16:32> Objective - Vital Signs/Intake and Output Vital Signs (last 24 hours): Temp Pulse Resp BP Pulse Ox 98 F 72 20 115/67 99 01/14/17 08:26 01/14/17 08:26 01/14/17 08:26 01/14/17 10:18 01/14/17 08:26 Intake and Output: 01/14/17 01/14/17 06:59 18:59 Intake Total 1080 600 Balance 1080 600 - Medications Medications: Current Medications Acetaminophen (Tylenol 325mg Tab) 650 mg PO Q4H PRN PRN Reason: Pain, Mild (1-3) Last Admin: 01/13/17 11:27 Dose: 650 mg Collagenase (Santyl) 0 gm TOP DAILY [facility] Last Admin: 01/13/17 11:25 Dose: 1 applic Ergocalciferol (Drisdol 50,000 Intl Units Cap) 1 cap PO Q7D [facility] Last Admin: 01/10/17 10:34 Dose: 1 cap Furosemide (Lasix) 20 mg PO DAILY [facility] Last Admin: 01/14/17 10:18 Dose: 20 mg Gabapentin (Neurontin) 300 mg PO BID [facility] PRN Reason: Protocol Last Admin: 01/14/17 10:18 Dose: 300 mg Ceftaroline Fosamil 600 mg/ (Sodium Chloride) 100 mls @ 100 mls/hr IVPB Q12 [facility] PRN Reason: Protocol Stop: 01/18/17 22:01 Last Admin: 01/14/17 10:19 Dose: 100 mls/hr Insulin Human Regular (Humulin R Low) 0 units SC ACHS [facility] PRN Reason: Protocol Last Admin: 01/13/17 22:11 Dose: Not Given Lisinopril (Zestril) 20 mg PO DAILY [facility] Last Admin: 01/14/17 10:18 Dose: 20 mg Metformin HCl (Glucophage) 1,000 mg PO BID [facility] Last Admin: 01/14/17 10:18 Dose: 1,000 mg Attending/Attestation - Attestation I have personally seen and examined this patient.: Yes I have fully participated in the care of the patient.: Yes I have reviewed all pertinent clinical information, including history, physical exam and plan: Yes
--- NOTE | 2017-01-15 00:05 | CP.PCM.PN ---
Subjective - Date & Time of Evaluation Date of Evaluation: 01/15/17 Time of Evaluation: 00:19 - Subjective Subjective: Patient was seen at bedside because his blood pressure was low. It was 73/41----> 81/40mmHg. Repeat one was 76/42. Patient complained of little head ache, dizziness. Denied chest pain, sob, nausea, sweating , palpitation. Temp was 98.3*F. RR-14 /min.Pulse 96/min. He received Lisinopril 20 mg at 10AM and lasix 20 mg at 10 AM. He was told by his PMD to take half of Enalapril, if he takes 20 mg of lasix. Medical record was reviewed. This 61 year old male was admitted with an open wound in right calf, venous stasis ulcer, cellulitis right leg. Has PMH of DM II, HTN, HLD, obesity, psoriasis,prostatitis ESBL E.coli, pneumonia, ex-smoker, colonoscopy. Objective - Vital Signs/Intake and Output Vital Signs (last 24 hours): Temp Pulse Resp BP Pulse Ox 98.1 F 93 H 18 113/75 99 01/14/17 16:00 01/14/17 16:00 01/14/17 16:00 01/14/17 16:00 01/14/17 16:00 Intake and Output: 01/14/17 01/15/17 18:59 06:59 Intake Total 600 520 Balance 600 520 - Medications Medications: Current Medications Acetaminophen (Tylenol 325mg Tab) 650 mg PO Q4H PRN PRN Reason: Pain, Mild (1-3) Last Admin: 01/13/17 11:27 Dose: 650 mg Collagenase (Santyl) 0 gm TOP DAILY [facility] Last Admin: 01/14/17 10:00 Dose: 1 applic Ergocalciferol (Drisdol 50,000 Intl Units Cap) 1 cap PO Q7D JAG Last Admin: 01/10/17 10:34 Dose: 1 cap Furosemide (Lasix) 20 mg PO DAILY [facility] Last Admin: 01/14/17 10:18 Dose: 20 mg Gabapentin (Neurontin) 300 mg PO BID JAG PRN Reason: Protocol Last Admin: 01/14/17 18:57 Dose: Not Given Ceftaroline Fosamil 600 mg/ (Sodium Chloride) 100 mls @ 100 mls/hr IVPB Q12 JAG PRN Reason: Protocol Stop: 01/18/17 22:01 Last Admin: 01/14/17 21:32 Dose: 100 mls/hr Insulin Human Regular (Humulin R Low) 0 units SC ACHS [facility] PRN Reason: Protocol Last Admin: 01/14/17 21:37 Dose: Not Given Lisinopril (Zestril) 20 mg PO DAILY [facility] Last Admin: 01/14/17 10:18 Dose: 20 mg Metformin HCl (Glucophage) 1,000 mg PO BID [facility] Last Admin: 01/14/17 16:45 Dose: 1,000 mg - Labs Labs: Micro Results 01/13/17 09:55 Leg - Right Gram Stain - Final 01/13/17 09:55 Leg - Right Wound Culture - Preliminary Gram Positive Cocci 01/11/17 16:30 Naris MRSA Culture (Admit) - Final MRSA NOT DETECTED 01/09/17 14:00 Naris MRSA Culture (Admit) - Final MRSA NOT DETECTED Most Recent Lab Values WBC 5.6 10^3/ul (4.5-11.0) 01/15/17 00:48 RBC 4.93 10^6/uL (3.5-6.1) 01/15/17 00:48 Hgb 15.0 g/dL (14.0-18.0) 01/15/17 00:48 Hct 44.3 % (42.0-52.0) 01/15/17 00:48 MCV 89.9 fl (80.0-105.0) 01/15/17 00:48 MCH 30.4 pg (25.0-35.0) 01/15/17 00:48 MCHC 33.9 g/dl (31.0-37.0) 01/15/17 00:48 RDW 13.0 % (11.5-14.5) 01/15/17 00:48 Plt Count 172 10^3/uL (120.0-450.0) 01/15/17 00:48 MPV 11.2 fl (7.0-11.0) H 01/15/17 00:48 Gran % 49.3 % (50.0-68.0) L 01/15/17 00:48 Lymph % (Auto) 36.3 % (22.0-35.0) H 01/15/17 00:48 [place] % (Auto) 9.9 % (1.0-6.0) H 01/15/17 00:48 Eos % (Auto) 4.0 % (1.5-5.0) 01/15/17 00:48 Baso % (Auto) 0.5 % (0.0-3.0) 01/15/17 00:48 Gran # 2.74 (1.4-6.5) 01/15/17 00:48 Lymph # 2.0 (1.2-3.4) 01/15/17 00:48 [place] # 0.6 (0.1-0.6) 01/15/17 00:48 Eos # 0.2 (0.0-0.7) 01/15/17 00:48 Baso # 0.03 K/mm3 (0.0-2.0) 01/15/17 00:48 ESR 7 mm/hr (0.00-15.0) 01/09/17 14:16 pO2 37 mm/Hg (30-55) 01/15/17 00:48 VBG pH 7.36 (7.32-7.43) 01/15/17 00:48 VBG pCO2 53.0 (40-60) 01/15/17 00:48 VBG HCO3 29.9 mmol/l (21-28) H 01/15/17 00:48 VBG Total CO2 31.5 mmol.L (22-28) H 01/15/17 00:48 VBG O2 Sat (Calc) 75.6 % (40-65) H 01/15/17 00:48 VBG Base Excess 3.0 mmol/L (0.0-2.0) H 01/15/17 00:48 VBG Potassium 3.9 mmol/L (3.6-5.2) 01/15/17 00:48 Sodium 137.0 mmol/L (132-148) 01/15/17 00:48 Chloride 102.0 mmol/L (98-107) 01/15/17 00:48 Glucose 110 mg/dl (75-110) 01/15/17 00:48 Lactate 1.0 mmol/L (0.7-2.1) 01/15/17 00:48 FiO2 21.0 % 01/15/17 00:48 Sodium 139 mmol/L (132-148) 01/15/17 00:48 Potassium 4.1 mmol/L (3.6-5.0) 01/15/17 00:48 Chloride 101 mmol/L (98-107) 01/15/17 00:48 Carbon Dioxide 27 mmol/L (21-33) 01/15/17 00:48 Anion Gap 15 (10-20) 01/15/17 00:48 BUN 23 mg/dL (7-21) H 01/15/17 00:48 Creatinine 1.1 mg/dL (0.5-1.4) 01/15/17 00:48 Est GFR ( Amer) > 60 01/15/17 00:48 Est GFR (Non-Af Amer) > 60 01/15/17 00:48 POC Glucose (mg/dL) 96 mg/dL (65-110) 01/14/17 21:26 Random Glucose 106 mg/dL (70-110) 01/15/17 00:48 Calcium 9.1 mg/dL (8.4-10.5) 01/15/17 00:48 Total Bilirubin 0.4 mg/dL (0.2-1.3) 01/15/17 00:48 AST 26 U/L (15-59) 01/15/17 00:48 ALT 42 U/L (7-56) 01/15/17 00:48 Alkaline Phosphatase 64 U/L (38-133) 01/15/17 00:48 Troponin I < 0.01 ng/mL 01/15/17 00:48 C-React Prot High Sens 1.55 mg/L (1.00-3.00) 01/09/17 14:16 Total Protein 7.0 g/dL (5.8-8.3) 01/15/17 00:48 Albumin 3.9 g/dL (3.0-4.8) 01/15/17 00:48 Globulin 3.0 gm/dL 01/15/17 00:48 Albumin/Globulin Ratio 1.3 (1.1-1.8) 01/15/17 00:48 Venous Blood Potassium 3.9 mmol/L (3.6-5.2) 01/15/17 00:48 - Constitutional Appears: Well, No Acute Distress - Head Exam Head Exam: ATRAUMATIC, NORMAL INSPECTION, NORMOCEPHALIC Additional comments: Obese. Ambulating, not in a clinical state of shock. - Eye Exam Eye Exam: Normal appearance - ENT Exam ENT Exam: Normal External Ear Exam - Neck Exam Neck Exam: Normal Inspection - Respiratory Exam Respiratory Exam: Clear to Ausculation Bilateral, NORMAL BREATHING PATTERN. absent: Accessory Muscle Use, Rhonchi, Wheezes, Respiratory Distress, Stridor - Cardiovascular Exam Cardiovascular Exam: REGULAR RHYTHM, +S1 (Normal.), +S2 (Normal.). absent: JVD - GI/Abdominal Exam GI & Abdominal Exam: absent: Distended - Rectal Exam Rectal Exam: Deferred - Exam Additional comments: Deferred. - Extremities Exam Extremities Exam: Normal Inspection - Back Exam Additional comments: Right calf dressing clean and dry. - Neurological Exam Neurological Exam: Alert, Awake, Oriented x3 - Psychiatric Exam Psychiatric exam: Normal Affect, Normal Mood - Skin Skin Exam: Normal Color Assessment and Plan - Assessment and Plan (Free Text) Assessment: Hypotension.-Effect of antihypertensive? -Hypovolemia? -R/O ND. -Dehydration. HTN. HLD. DM II. Obesity. Plan: Bolus of Normal Saline - 500 CC Once. CBC,CMP,Troponin stat. EKG stat.-------------> NSR, QIII, aVF-not new. Continue present management. BP was 107/ 63 after the bolus.
[2017-01-15] MEDS ORDERED: Sodium Chloride 0.9% 500 ML IV STA (00:50)
[2017-01-15 01:03] LABS: BASO # 0.03 K/mm3 (0.0-2.0); BASO % 0.5 % (0.0-3.0); EOS # 0.2 (0.0-0.7); GRAN # 2.74 (1.4-6.5); GRAN % 49.3 % (50.0-68.0); HEMATOCRIT 44.3 % (42.0-52.0); LYMPH % 36.3 % (22.0-35.0); MEAN CELL VOLUME 89.9 fl (80.0-105.0); MEAN CORPUSCULAR HEMOGLOBIN 30.4 pg (25.0-35.0); MEAN CORPUSCULAR HGB CONC 33.9 g/dl (31.0-37.0); MEAN PLATELET VOLUME 11.2 fl (7.0-11.0); MONO # 0.6 (0.1-0.6); MONO % 9.9 % (1.0-6.0); VENOUS BLOOD PH 7.36 (7.32-7.43); WHITE BLOOD COUNT 5.6 10^3/ul (4.5-11.0)
[2017-01-15 01:11] LABS: ALB/GLOB RATIO 1.3 (1.1-1.8); ALKALINE PHOSPHATASE 64 U/L (38-133); ALT/SGPT 42 U/L (7-56); AST/SGOT 26 U/L (15-59); BILIRUBIN,TOTAL 0.4 mg/dL (0.2-1.3); BLOOD UREA NITROGEN 23 mg/dL (7-21); CALCIUM 9.1 mg/dL (8.4-10.5); CARBON DIOXIDE 27 mmol/L (21-33); CHLORIDE 101 mmol/L (98-107); GFR AFRICAN-AMERICAN > 60; GLUCOSE,RANDOM 106 mg/dL (70-110); POTASSIUM 4.1 mmol/L (3.6-5.0); SODIUM 139 mmol/L (132-148)
[2017-01-15 01:22] LABS: TROPONIN I < 0.01 ng/mL
--- NOTE | 2017-01-15 03:39 | PN ---
DATE: SUBJECTIVE: The patient was seen and examined at the bedside, looking comfortable. Family friends were sitting on the bedside having dressing on the leg status post debridement by podiatry and tolerated the procedure very well. No nausea or vomiting. No diarrhea. No headache or dizziness. PHYSICAL EXAMINATION: VITAL SIGNS: Temperature 98.1, pulse 96, blood pressure 113/75 and respiratory rate 18. HEENT: Head normocephalic and atraumatic. Eyes PERRLA. Extraocular muscles intact. Conjunctiva clear. Nose patent. Mucous membranes moist. NECK: Supple. No carotid bruits. No JVD or thyromegaly. CHEST: Bilaterally symmetrical. HEART: S1 and S2 positive. LUNGS: Clear to auscultation. ABDOMEN: Soft. Bowel sounds positive. No organomegaly. EXTREMITIES: Right extremities, there is dressing, open wound. NEUROLOGICAL: The patient is awake and alert, moving all 4 extremities. No focal deficit. LABORATORY DATA: We do not have recent labs today, but I reviewed old labs. Sugar 96, 117 and 137. ASSESSMENT AND PLAN: Mr. Josemanuel Wei is 61 years old male with multiple medical problems diabetes uncontrolled, obesity, body mass index of 50, hypertension and dyslipidemia, history of extended-spectrum beta-lactamase Escherichia coli sepsis with prostatitis, now have right leg skin and soft tissue infection with infected ulcer on the posterior portion of the right leg and today went for debridement by the podiatry. Discussion done with the patient and family members. MRI of the right leg done shows no osteomyelitis. We will continue antibiotics per infectious disease, wound care as per podiatry. We will follow. Ivonne Patel MD
--- NOTE | 2017-01-15 05:33 | PN ---
DATE: 01/14/2017 SUBJECTIVE: Patient seen in bed in no acute distress, nontoxic. PHYSICAL EXAMINATION: VITAL SIGNS: Temperature is 98, blood pressure is 113/70, respiratory rate of 18, heart rate of 93. HEENT: Unremarkable. NECK: Supple. LUNGS: Decreased breath sounds. HEART: Normal S1 and S2. ABDOMEN: Soft, nontender. LABORATORY EXAMINATION: Reveals a white count of 5 and hemoglobin of 14. Chemistries are noted. Microbiology reveals Gram-positive cocci in the leg culture. Dr. Patel's note is reviewed. Dr. Trevizo's note is also reviewed. ASSESSMENT AND PLAN: This is a 61-year-old with right leg Gram positive cocci, skin and skin structure infection and with history of extended-spectrum beta-lactamases and history of sepsis, prostatitis, morbid obesity with BMI of 50, on day #5 of Teflaro. We will check on identification, sensitivity, Gram-positive cocci. Jani Magana MD
[2017-01-15 07:01] LABS: HEMATOCRIT 42.8 % (42.0-52.0); MEAN CELL VOLUME 89.7 fl (80.0-105.0); MEAN CORPUSCULAR HGB CONC 33.4 g/dl (31.0-37.0); MEAN PLATELET VOLUME 11.4 fl (7.0-11.0); RED CELL DISTRIBUTION WIDTH 13.1 % (11.5-14.5); WHITE BLOOD COUNT 4.5 10^3/ul (4.5-11.0)
[2017-01-15 07:09] LABS: BLOOD UREA NITROGEN 22 mg/dL (7-21); CALCIUM 9.1 mg/dL (8.4-10.5); CARBON DIOXIDE 26 mmol/L (21-33); CHLORIDE 104 mmol/L (98-107); GFR AFRICAN-AMERICAN > 60; GLUCOSE,RANDOM 110 mg/dL (70-110); SODIUM 140 mmol/L (132-148)
--- NOTE | 2017-01-15 08:14 | CP.PCM.PN ---
<Christopher Sanchez - Last Filed: 01/15/17 08:12> Subjective - Date & Time of Evaluation Date of Evaluation: 01/15/17 Time of Evaluation: 08:12 - Subjective Subjective: A 61 year old obese male patient was seen at bedside this AM concerning an open lesion to right posterior leg at the level of Gastroc heads. Dressing to right lower extremity appears cdi. Patient resting comfortably and denies of acute distress. Patient denies of any N/V/F/C or SOB today Objective - Vital Signs/Intake and Output Vital Signs (last 24 hours): Temp Pulse Resp BP Pulse Ox 98.1 F 62 18 107/63 99 01/14/17 16:00 01/15/17 01:30 01/14/17 16:00 01/15/17 01:30 01/14/17 16:00 Intake and Output: 01/15/17 01/15/17 06:59 18:59 Intake Total 520 Balance 520 - Medications Medications: Current Medications Acetaminophen (Tylenol 325mg Tab) 650 mg PO Q4H PRN PRN Reason: Pain, Mild (1-3) Last Admin: 01/13/17 11:27 Dose: 650 mg Collagenase (Santyl) 0 gm TOP DAILY [facility] Last Admin: 01/14/17 10:00 Dose: 1 applic Ergocalciferol (Drisdol 50,000 Intl Units Cap) 1 cap PO Q7D [facility] Last Admin: 01/10/17 10:34 Dose: 1 cap Furosemide (Lasix) 20 mg PO DAILY [facility] Last Admin: 01/14/17 10:18 Dose: 20 mg Gabapentin (Neurontin) 300 mg PO BID [facility] PRN Reason: Protocol Last Admin: 01/14/17 18:57 Dose: Not Given Ceftaroline Fosamil 600 mg/ (Sodium Chloride) 100 mls @ 100 mls/hr IVPB Q12 [facility] PRN Reason: Protocol Stop: 01/18/17 22:01 Last Admin: 01/14/17 21:32 Dose: 100 mls/hr Insulin Human Regular (Humulin R Low) 0 units SC ACHS [facility] PRN Reason: Protocol Last Admin: 01/14/17 21:37 Dose: Not Given Lisinopril (Zestril) 20 mg PO DAILY [facility] Last Admin: 01/14/17 10:18 Dose: 20 mg Metformin HCl (Glucophage) 1,000 mg PO BID [facility] Last Admin: 01/14/17 16:45 Dose: 1,000 mg - Labs Labs: 01/15/17 06:40 01/15/17 06:40 - Constitutional Appears: Well, Non-toxic, No Acute Distress - Head Exam Head Exam: ATRAUMATIC - Extremities Exam Additional comments: Right lower extremity exam DERM: Open wound noted to posterior aspect of Right calf measuring 1cm x 1cm x 0.1cm with scab over the ulceration. Mild drainage is noted, No purulent discharge noted. No probe to bone, no tracking is noted, No mal-odor noted. Erythema is noted to be decreasing in its size compared to yesterdays VASC: Palpable DP and PT noted bilaterally 1/4, UNDERCOLLAR MAKER less than 3 seconds to all digits noted ORTHO: Pain on palpation to the area of ulceration. Decreased ROM to joints distal to right knee secondary to guarding NEURO: Gross sensation intact - Neurological Exam Neurological Exam: Alert, Awake, Oriented x3 - Psychiatric Exam Psychiatric exam: Normal Affect, Normal Mood - Skin Skin Exam: Normal Color, Warm Assessment and Plan - Assessment and Plan (Free Text) Assessment: 61 yo male patient with venous stasis ulceration to posterior aspect of right leg Plan: Patient was seen, evaluated and treated with all questions and concerns addressed labs and vitals reviewed Rounded with attending Dr. Trevizo Wound culture pending Applied Santyl, DSD, GERSON Continue with IV abx as per ID Podiatry will continue to follow in-house <Mayank Trevizo - Last Filed: 01/15/17 09:26> Objective - Vital Signs/Intake and Output Vital Signs (last 24 hours): Temp Pulse Resp BP Pulse Ox 98.1 F 62 18 107/63 99 01/14/17 16:00 01/15/17 01:30 01/14/17 16:00 01/15/17 01:30 01/14/17 16:00 Intake and Output: 01/15/17 01/15/17 06:59 18:59 Intake Total 520 Balance 520 - Medications Medications: Current Medications Acetaminophen (Tylenol 325mg Tab) 650 mg PO Q4H PRN PRN Reason: Pain, Mild (1-3) Last Admin: 01/13/17 11:27 Dose: 650 mg Collagenase (Santyl) 0 gm TOP DAILY [facility] Last Admin: 01/14/17 10:00 Dose: 1 applic Ergocalciferol (Drisdol 50,000 Intl Units Cap) 1 cap PO Q7D [facility] Last Admin: 01/10/17 10:34 Dose: 1 cap Furosemide (Lasix) 20 mg PO DAILY [facility] Last Admin: 01/14/17 10:18 Dose: 20 mg Gabapentin (Neurontin) 300 mg PO BID [facility] PRN Reason: Protocol Last Admin: 01/14/17 18:57 Dose: Not Given Ceftaroline Fosamil 600 mg/ (Sodium Chloride) 100 mls @ 100 mls/hr IVPB Q12 [facility] PRN Reason: Protocol Stop: 01/18/17 22:01 Last Admin: 01/14/17 21:32 Dose: 100 mls/hr Insulin Human Regular (Humulin R Low) 0 units SC ACHS [facility] PRN Reason: Protocol Last Admin: 01/15/17 08:20 Dose: Not Given Lisinopril (Zestril) 20 mg PO DAILY [facility] Last Admin: 01/14/17 10:18 Dose: 20 mg Metformin HCl (Glucophage) 1,000 mg PO BID [facility] Last Admin: 01/14/17 16:45 Dose: 1,000 mg - Labs Labs: 01/15/17 06:40 01/15/17 06:40 Attending/Attestation - Attestation I have personally seen and examined this patient.: Yes I have fully participated in the care of the patient.: Yes I have reviewed all pertinent clinical information, including history, physical exam and plan: Yes
[2017-01-15] MEDS: Insulin Reg-LOW-Coverage SC SCH ×4 (08:20→21:48)
[2017-01-15] MEDS: Ceftaroline 600 MG in Sodium Chloride 0.9% 100 ML IVPB SCH (10:14)
[2017-01-15] MEDS: Collagenase 250 Units/gm Ointment(30 gm) TOP SCH (10:14)
--- NOTE | 2017-01-15 20:53 | PN ---
DATE: 01/15/2017 SUBJECTIVE: The patient is in bed, in no acute distress, was seen earlier this morning and no fevers and no chills. PHYSICAL EXAMINATION:. VITAL SIGNS: Temperature is 98, blood pressure is 107/60, respiratory rate of 18. HEENT: Unremarkable. NECK: Supple. LUNGS: Decreased breath sounds. HEART: Normal S1 and S2. ABDOMEN: Soft, nontender. LABORATORY DATA: Reveals a white count of 4.5, hemoglobin of 14, platelets of 173. Chemistry reveals a BUN of 22, creatinine of 1.1. Microbiology reveals the patient has Staph aureus that is pansensitive, sensitive to oxacillin, sensitive to quinolones. MEDICATIONS: The patient is currently on Teflaro. ASSESSMENT AND PLAN: This is a 61-year-old with a right leg cellulitis and skin and skin soft tissue infection with a sensitive Staphylococcus aureus. We will discontinue Teflaro and complete with p.o. Vantin. The patient had an MRI of the lower extremity, which is negative for osteomyelitis. We will complete with p.o. Vantin 200 mg p.o. b.i.d. for five days Jani Magana MD
[2017-01-15] MEDS: Cefpodoxime (Vantin) 200 mg Tab PO SCH (21:51)
[2017-01-16 00:10] VITALS: O2SAT 94
--- NOTE | 2017-01-16 01:32 | CARD ---
APPROVED REPORT EKG Measurement Heart [id number] CT [id number] <Conclusion> Normal sinus rhythm Inferior infarct, age undetermined Abnormal ECG
--- NOTE | 2017-01-16 04:36 | PN ---
DATE: 01/15/2017 SUBJECTIVE: The patient is a 61-year-old male. The patient was seen and examined on the bedside. Sister and are sitting on the bedside also. No nausea, vomiting, diarrhea, hematuria, or hematochezia. No swelling of the upper extremities. No headaches. No dizziness. PHYSICAL EXAMINATION: VITAL SIGNS: Temperature 98, blood pressure 107/60, respiratory rate 18. HEENT: Head normocephalic, atraumatic. Eyes: PERRLA, extraocular muscles are intact, conjunctivae are clear. Nose is patent. Mucous membrane moist. NECK: Supple. No carotid bruit. No JVD. No thyromegaly. CHEST: Bilaterally symmetrical. CARDIOPULMONARY: S1, S2 positive. LUNGS: Clear to auscultation. ABDOMEN: Soft. Bowel sounds present. No organomegaly. EXTREMITIES: Upper extremities, no edema, no cyanosis. Lower extremities, has dressing done by the Dr. Santhosh Talley of Podiatry. NEUROLOGICAL: The patient is awake, alert. Moving all 4 extremities. No focal deficit. LABORATORY DATA: White blood cells 4.5, hemoglobin 14.3, hematocrit 42.8, and platelets 176. Sodium 140, potassium 4.0, BUN 32, creatinine 1.1, glucose of 195. MEDICATIONS: Vitamin D, metformin, insulin, Lasix, Neurontin, fentanyl patch, Tylenol, Vantin. ASSESSMENT AND PLAN: Mr. Eriberto Abernathy is a 61-year-old male with multiple medical problems, who has right leg cellulitis, with skin and soft tissue infection with Staphylococcus aureus sensitive to Teflaro and completed p.o. Vantin. The patient had MRI of the lower extremities, which is negative for osteomyelitis. Dr. Magana wants to give Vantin 200 mg p.o. b.i.d. for [address] Tervizo's notes also, Podiatry. The patient has an open lesion to the right posterior leg at the level of the gastrocnemius head passing to the right lower extremity, appears to be chronic venous insufficiency. We will continue present treatment and wound care by Podiatry. We will follow. Ivonne Patel MD
[2017-01-16] MEDS: Insulin Reg-LOW-Coverage SC SCH ×4 (08:31→21:39)
[2017-01-16] MEDS: Cefpodoxime (Vantin) 200 mg Tab PO SCH ×2 (10:01→21:43)
[2017-01-16] MEDS: Collagenase 250 Units/gm Ointment(30 gm) TOP SCH (10:02)
--- NOTE | 2017-01-16 12:39 | PN ---
DATE: 01/16/2017 SUBJECTIVE: The patient is seen earlier. He is doing well. No nausea or vomiting. PHYSICAL EXAMINATION: VITAL SIGNS: Temperature 97, blood pressure 100/60, and respiratory rate 16. HEENT: Unremarkable. NECK: Supple. LUNGS: Decreased breath sounds. HEART: Normal S1 and S2. ABDOMEN: Soft and nontender. LABORATORY DATA: Reveals a white count of 4.5, hemoglobin of 14, and platelets 173. Chemistry are noted and creatinine of 1.1. Microbiology reveals a sensitive Staph aureus from the right leg culture and review of orders reveals the patient to be on cefpodoxime. Directors note is reviewed. ASSESSMENT AND PLAN: This is a 61-year-old with a right leg cellulitis with the skin and skin soft tissue with a sensitive Staphylococcus aureus on p.o. Vantin, complete 5 days. Jani Magana MD
--- NOTE | 2017-01-16 13:34 | CP.PCM.PN ---
<Christopher Sanchez - Last Filed: 01/16/17 13:32> Subjective - Date & Time of Evaluation Date of Evaluation: 01/16/17 Time of Evaluation: 13:32 - Subjective Subjective: A 61 year old obese male patient was seen at bedside this AM concerning an open lesion to right posterior leg at the level of Gastroc heads. by bedside. Dressing to right lower extremity appears cdi. Patient resting comfortably and denies of acute distress. Patient denies of any N/V/F/C or SOB today Objective - Vital Signs/Intake and Output Vital Signs (last 24 hours): Temp Pulse Resp BP Pulse Ox 97.8 F 54 L 18 100/51 L 94 L 01/16/17 08:35 01/16/17 08:35 01/16/17 08:35 01/16/17 10:01 01/16/17 08:35 Intake and Output: 01/16/17 01/16/17 06:59 18:59 Intake Total 1020 Balance 1020 - Medications Medications: Current Medications Acetaminophen (Tylenol 325mg Tab) 650 mg PO Q4H PRN PRN Reason: Pain, Mild (1-3) Last Admin: 01/13/17 11:27 Dose: 650 mg Cefpodoxime Proxetil (Vantin) 200 mg PO Q12 [facility] PRN Reason: Protocol Stop: 01/20/17 22:01 Last Admin: 01/16/17 10:01 Dose: 200 mg Collagenase (Santyl) 0 gm TOP DAILY [facility] Last Admin: 01/16/17 10:02 Dose: 1 applic Ergocalciferol (Drisdol 50,000 Intl Units Cap) 1 cap PO Q7D [facility] Last Admin: 01/10/17 10:34 Dose: 1 cap Furosemide (Lasix) 20 mg PO DAILY [facility] Last Admin: 01/16/17 10:01 Dose: 20 mg Gabapentin (Neurontin) 300 mg PO BID [facility] PRN Reason: Protocol Last Admin: 01/16/17 10:01 Dose: 300 mg Insulin Human Regular (Humulin R Low) 0 units SC ACHS [facility] PRN Reason: Protocol Last Admin: 01/16/17 12:05 Dose: 1 units Metformin HCl (Glucophage) 1,000 mg PO BID [facility] Last Admin: 01/16/17 10:01 Dose: 1,000 mg - Labs Labs: 01/15/17 06:40 08/26/17 06:40 - Constitutional Appears: Well, Non-toxic, No Acute Distress - Head Exam Head Exam: ATRAUMATIC - Extremities Exam Additional comments: Right lower extremity exam DERM: Open wound noted to posterior aspect of Right calf measuring 1cm x 1cm x 0.1cm with scab over the ulceration. Mild drainage is noted, No purulent discharge noted. No probe to bone, no tracking is noted, No mal-odor noted. Erythema is noted to be decreasing in its size compared to yesterdays VASC: Palpable DP and PT noted bilaterally 1/4, FISHING ROD TRIMMER less than 3 seconds to all digits noted ORTHO: Pain on palpation to the area of ulceration. Decreased ROM to joints distal to right knee secondary to guarding NEURO: Gross sensation intact - Neurological Exam Neurological Exam: Alert, Awake, Oriented x3 - Psychiatric Exam Psychiatric exam: Normal Affect, Normal Mood - Skin Skin Exam: Normal Color, Warm Assessment and Plan - Assessment and Plan (Free Text) Assessment: 61 yo male patient with venous stasis ulceration to posterior aspect of right leg Plan: Patient was seen, evaluated and treated with all questions and concerns addressed labs and vitals reviewed Discussed with attending Dr. Trevizo Wound culture: Staph Aureus PCN resistant Applied Santyl, DSD, GERSON Continue with IV abx as per ID Podiatry will continue to follow in-house <Mayank Trevizo - Last Filed: 01/18/17 11:28> Objective - Vital Signs/Intake and Output Vital Signs (last 24 hours): Temp Pulse Resp BP Pulse Ox 98 F 59 L 20 118/73 94 L 01/17/17 08:50 01/17/17 08:50 01/17/17 08:50 01/17/17 09:33 01/17/17 08:50 - Labs Labs: 01/15/17 06:40 01/15/17 06:40 Attending/Attestation - Attestation I have personally seen and examined this patient.: Yes I have fully participated in the care of the patient.: Yes I have reviewed all pertinent clinical information, including history, physical exam and plan: Yes
[2017-01-17 00:13] VITALS: RESP 20; TEMP 98
--- NOTE | 2017-01-17 01:59 | PN ---
DATE: 01/16/2017 SUBJECTIVE: The patient seen and examined at the bedside. Looking comfortable. Family and hoahaoism people are around. No nausea, no vomiting, no diarrhea. No hematuria, no hematochezia. No headache, no dizziness. Still having pain in the leg. PHYSICAL EXAMINATION VITAL SIGNS: Temperature 97, blood pressure 100/60, and respiratory rate 18. HEENT: Head normocephalic, atraumatic. Eyes PERRLA. Extraocular muscles intact. Conjunctiva clear. Nose patent. Mucous membranes moist. NECK: Supple. No carotid bruits. No thyromegaly. CHEST: Bilaterally symmetrical. HEART: S1 and S2 positive. LUNGS: Clear to auscultation. ABDOMEN: Soft. Bowel sounds positive. No organomegaly. EXTREMITIES: No edema, no cyanosis. NEUROLOGICAL: The patient is awake and alert. Moving all 4 extremities. No focal deficits. MEDICATION: Vitamin D. Glucophage, insulin, Lasix, Neurontin, fentanyl patch, Tylenol, and Vantin. LABORATORY DATA: White blood cells 4.5, hemoglobin 14.3, hematocrit 42.8, and platelets 173. Glucose 108, 171, 115, 108, 102, and 195. ASSESSMENT AND PLAN: Mr. Josemanuel Wei is a 61-year-old male, had open lesion into the right posterior leg of the level of gastrocnemius head. The rest of the right lower extremity appears to be okay. Dressing changed by the podiatry. Wound culture has Staphylococcus aureus Estafilococos coagulosa-negativos resistant. Applied centile and GERSON bandage. Continue intravenous antibiotics as per infectious disease. Reviewed Dr. Magana's notes also. The patient with history of diabetes mellitus, hypertension, hypercholesterolemia. Family history of peripheral vascular disease. I called Dr. Magana, infection is sensitive Staphylococcus aureus, on p.o. Vantin complete 5 days. Gastrointestinal and deep venous thrombosis prophylaxis. Repeat labs. We will follow. Ivonne Patel MD
[2017-01-17] MEDS: Insulin Reg-LOW-Coverage SC SCH ×2 (07:30→14:52)
[2017-01-17 08:51] VITALS: BP 118/73; PULSE 59
[2017-01-17] MEDS: Cefpodoxime (Vantin) 200 mg Tab PO SCH (09:32)
[2017-01-17] MEDS: Collagenase 250 Units/gm Ointment(30 gm) TOP SCH (09:36)
[2017-01-17] MEDS: Ergocalciferol 50,000 Intl Units Cap PO SCH (09:37)
--- NOTE | 2017-01-17 11:45 | CP.PCM.PN ---
<Christopher Sanchez - Last Filed: 01/17/17 11:42> Subjective - Date & Time of Evaluation Date of Evaluation: 01/17/17 Time of Evaluation: 11:42 - Subjective Subjective: A 61 year old obese male patient was seen at bedside this AM concerning an open lesion to right posterior leg at the level of Gastroc heads. Dressing to right lower extremity appears cdi. Patient resting comfortably and denies of acute distress. Patient denies of any N/V/F/C or SOB today Objective - Vital Signs/Intake and Output Vital Signs (last 24 hours): Temp Pulse Resp BP Pulse Ox 98 F 59 L 20 118/73 94 L 01/17/17 08:50 01/17/17 08:50 01/17/17 08:50 01/17/17 09:33 01/17/17 08:50 Intake and Output: 01/17/17 01/17/17 06:59 18:59 Intake Total 960 Balance 960 - Medications Medications: Current Medications Acetaminophen (Tylenol 325mg Tab) 650 mg PO Q4H PRN PRN Reason: Pain, Mild (1-3) Last Admin: 01/13/17 11:27 Dose: 650 mg Cefpodoxime Proxetil (Vantin) 200 mg PO Q12 JAG PRN Reason: Protocol Stop: 01/20/17 22:01 Last Admin: 01/17/17 09:32 Dose: 200 mg Collagenase (Santyl) 0 gm TOP DAILY [facility] Last Admin: 01/17/17 09:36 Dose: 1 applic Ergocalciferol (Drisdol 50,000 Intl Units Cap) 1 cap PO Q7D [facility] Last Admin: 01/17/17 09:37 Dose: 1 cap Furosemide (Lasix) 20 mg PO DAILY [facility] Last Admin: 01/17/17 09:33 Dose: 20 mg Gabapentin (Neurontin) 300 mg PO BID JAG PRN Reason: Protocol Last Admin: 01/17/17 09:33 Dose: 300 mg Insulin Human Regular (Humulin R Low) 0 units SC ACHS [facility] PRN Reason: Protocol Last Admin: 01/17/17 07:30 Dose: Not Given Metformin HCl (Glucophage) 1,000 mg PO BID [facility] Last Admin: 01/17/17 09:32 Dose: 1,000 mg - Labs Labs: 01/15/17 06:40 01/15/17 06:40 - Constitutional Appears: Well, Non-toxic, No Acute Distress - Extremities Exam Additional comments: Right lower extremity exam DERM: Open wound noted to posterior aspect of Right calf measuring 1cm x 1cm x 0.1cm with dried scab over the ulceration. Mild drainage is noted, No purulent discharge noted. No probe to bone, no tracking is noted, No mal-odor noted. Erythema is resolving. Mild erythema still visible but with less than 2cm margins VASC: Palpable DP and PT noted bilaterally 1/4, [employer] less than 3 seconds to all digits noted ORTHO: Pain on palpation to the area of ulceration. Decreased ROM to joints distal to right knee secondary to guarding NEURO: Gross sensation intact - Neurological Exam Neurological Exam: Alert, Awake, Oriented x3 - Psychiatric Exam Psychiatric exam: Normal Affect, Normal Mood - Skin Skin Exam: Normal Color, Warm Assessment and Plan - Assessment and Plan (Free Text) Assessment: 61 yo male patient with venous stasis ulceration to posterior aspect of right leg Plan: Patient was seen, evaluated and treated with all questions and concerns addressed labs and vitals reviewed Discussed with attending Dr. Chávez Wound culture: Staph Aureus PCN resistant Applied Santyl, Optifoam, Tubigrip, and GERSON bandage Continue with IV abx as per ID Patient to follow up with Dr. Chávez at her office as an outpatient <Ida Chávez - Last Filed: 01/23/17 19:41> Objective - Vital Signs/Intake and Output Vital Signs (last 24 hours): Temp Pulse Resp BP Pulse Ox 98 F 59 L 20 118/73 94 L 01/17/17 08:50 01/17/17 08:50 01/17/17 08:50 01/17/17 09:33 01/17/17 08:50 - Labs Labs: 01/15/17 06:40 01/15/17 06:40 Attending/Attestation - Attestation I have personally seen and examined this patient.: Yes I have fully participated in the care of the patient.: Yes I have reviewed all pertinent clinical information, including history, physical exam and plan: Yes
--- NOTE | 2017-01-17 19:39 | PN ---
DATE: 01/17/2017 SUBJECTIVE: The patient seen in bed. In no acute distress. Nontoxic. PHYSICAL EXAMINATION VITAL SIGNS: Temperature is 98, blood pressure is 120/70, respiratory rate of 16. HEENT: Unremarkable. NECK: Supple. LUNGS: Decreased breath sounds. HEART: Normal S1 and S2. ABDOMEN: Soft and nontender. LABORATORY DATA: Reveals the patient's white count is 4.5, hemoglobin of 14, platelets of 173. Chemistries reveal creatinine is 1.1. Microbiology is noted with the right leg is sensitive staph aureus. ASSESSMENT AND PLAN: This is a 61-year-old male with right leg cellulitis of the skin and skin and soft tissue with sensitive Staphylococcus aureus on p.o. vancomycin. The patient was seen earlier today. We will follow with primary. Jani Magana MD
--- NOTE | 2017-01-25 15:18 | DS ---
CHIEF COMPLAINT: Right leg pain. HISTORY OF PRESENT ILLNESS: The patient is a 61-year-old male with past medical history of diabetes mellitus, cellulitis of leg, hypertension, hypercholesterolemia, actually came in my office with the swelling of the right calf, red, warm and tender and he has really bad family history of peripheral vascular disease. His grandmother has amputation of the leg and mother has bypass and his complains started 1 week ago. I saw the patient, treated, but not got better, sent to the emergency room. No fever. No chills. No hematuria. No hematochezia. No headache. No dizziness. PAST MEDICAL HISTORY: Hypertension, diabetes mellitus and psoriasis. FAMILY HISTORY: Father and mother noncontributory. HABITS: No smoking. No drug. No ethanol. ALLERGIES: THE PATIENT IS ALLERGIC WITH IODINE AND IODINE-CONTAINING PRODUCTS. HOME MEDICATIONS: Vasotec, Glucophage, amoxycillin, vitamin D, Lasix, and Neurontin. REVIEW OF SYSTEMS: The patient seen and examined at the bedside, looking comfortable. Leg is better, no redness, no warmth, has dressing. No chest pain. No palpitations. No fever. No chills. PHYSICAL EXAMINATION: VITAL SIGNS: Temperature 98, pulse 59, blood pressure 118/73, respiratory rate 20 and pulse ox 94% on room air. HEENT: Head; normocephalic and atraumatic. Eyes; PERRLA. Extraocular muscles intact. Conjunctivae clear. Nose patent. Mucous membrane moist. NECK: Supple. No carotid bruit, JVD or thyromegaly. CHEST: Bilaterally symmetrical. HEART: S1 and S2 positive. LUNG: Clear to auscultation. ABDOMEN: Soft. Bowel sounds positive. No organomegaly. EXTREMITIES: Right leg has dressing. Other three extremities, no edema and no cyanosis. NEUROLOGIC: The patient is awake and alert. Follows simple commands. LABORATORY DATA: White blood cells 4.5, hemoglobin 14.3, hematocrit 42.8 and platelets 173. Glucose 104, 113 and 108. ASSESSMENT AND PLAN: The patient is a 61-year-old male with right leg cellulitis of the skin and the soft tissues with sensitive Staphylococcus aureus, on p.o. vancomycin. Antibiotics given as per infectious disease, seen by podiatry, Dr. Ida Chávez, has open lesion to the right posterior leg at the level of the gastroc heads. dressing to , right lower extremity done , history of obesity, diabetes mellitus, hypertension, hypercholesterolemia and noncompliance. During hospital stay, got IV antibiotics. Discharged home with p.o. antibiotics. Follow up with primary care physician and ID. Prescription medication given. Ivonne Patel MD MTDSerene
== END 2017-01-17 15:29 | disposition home or self-care (01) | DRG 603 ==
LOC: ED 18:35 → ERH 21:34 → 5RNO 23:04 → OBSVTOIN 01-10 08:53
PROVIDERS: ADMIT Internal Medicine; ATTEND Internal Medicine
PROC: 0HDKXZZ Extraction of Right Lower Leg Skin, External Approach (ICD-10-PCS; principal; 2017-01-14)
DX: L03.115 Cellulitis of right lower limb (principal); E11.622 Type 2 diabetes mellitus with other skin ulcer; L97.219 Non-pressure chronic ulcer of right calf with unspecified severity; I87.2 Venous insufficiency (chronic) (peripheral); Z68.43 Body mass index [BMI] 50.0-59.9, adult; E11.65 Type 2 diabetes mellitus with hyperglycemia; I10 Essential (primary) hypertension; E78.5 Hyperlipidemia, unspecified; L40.9 Psoriasis, unspecified; E66.01 Morbid (severe) obesity due to excess calories; G47.33 Obstructive sleep apnea (adult) (pediatric); Z79.84 Long term (current) use of oral hypoglycemic drugs; Z91.19 Patient's noncompliance with other medical treatment and regimen; Z87.01 Personal history of pneumonia (recurrent); Z87.891 Personal history of nicotine dependence